=== PATIENT | male | born 1975 | race Caucasian/White ===

== ENCOUNTER → 2020-03-17 | Outpatient (CLI) | payer OTHER ==
--- NOTE | 2020-03-17 09:26 | REPVR ---
PROCEDURE INFORMATION: Exam: MR Angiogram Head Without Contrast, Arteries Exam date and time: 03/17/2020 8:20 AM Age: 44 years old Clinical indication: Other: Abnormal ct-asymetry of lt cavernous sinus TECHNIQUE: Imaging protocol: MR angiogram head without contrast. Exam focused on the arteries. 3D rendering (Not supervised by radiologist): MIP and/or 3D reconstructed images were created by the technologist. COMPARISON: CT HEAD OUTSIDE PRIOR 02/29/2020 6:54 AM FINDINGS: ANTERIOR CIRCULATION: Right internal carotid artery: Intracranial segment is patent with no significant stenosis. No aneurysm. Right middle cerebral artery: No occlusion or significant stenosis. No aneurysm. Right anterior cerebral artery: No occlusion or significant stenosis. No aneurysm. Left internal carotid artery: Intracranial segment is patent with no significant stenosis. No aneurysm. Left middle cerebral artery: No occlusion or significant stenosis. No aneurysm. Left anterior cerebral artery: No occlusion or significant stenosis. No aneurysm. POSTERIOR CIRCULATION: Right vertebral artery: No occlusion or significant stenosis. No aneurysm. Hypoplastic Left vertebral artery: No occlusion or significant stenosis. No aneurysm. Dominant Basilar artery: No occlusion or significant stenosis. No aneurysm. Right posterior cerebral artery: No occlusion or significant stenosis. No aneurysm. origin Left posterior cerebral artery: No occlusion or significant stenosis. No aneurysm. IMPRESSION: No stenosis.No occlusion. No aneurysm. No abnormality is seen in the region of the left cavernous sinus. The asymmetry on the prior CT scan is felt to be artifactual. Electronically signed by: Ethan Barnett On 03/17/2020 09:26:38 AM
--- NOTE | 2020-03-17 09:33 | REPVR ---
PROCEDURE INFORMATION: Exam: MR Head Without Contrast Exam date and time: 03/17/2020 8:19 AM Age: 44 years old Clinical indication: Other: Abnormal ct-asymetry of lt cavernous sinus TECHNIQUE: Imaging protocol: MR of the head without contrast. COMPARISON: CT HEAD OUTSIDE PRIOR 02/29/2020 6:54 AM FINDINGS: Brain: Examination reveals few small focal areas of increased T2 signal in bilateral frontal white matter. These are nonspecific and could be secondary to chronic migraine headache, vasculitis, Lyme disease, demyelination and focal areas of chronic ischemia. No acute infarction, masses, midline shift or acute hemorrhage is seen. No acute intracranial abnormality is identified.There is no abnormal diffusion weighted signal intensity to suggest an acute ischemic event.The cortical freeman / white matter interfaces are preserved throughout the brain.Intracranial flow voids are well maintained.Examination of the posterior fossa demonstrates no significant abnormality.On gradient echo imaging, no susceptibility changes are seen to represent parenchymal calcification or degraded blood products. Cerebral ventricles: The ventricular system is not dilated and is appropriate for the patient's age. Bones/joints: Unremarkable. Paranasal sinuses: Normal as visualized. No acute sinusitis. Mastoid air cells: There are changes of right-sided mastoidectomy with chronic mastoiditis. Orbits: Unremarkable. Soft tissues: Unremarkable. IMPRESSION: 1. No acute infarction, masses or hemorrhage is seen. No acute intracranial abnormality is identified. 2. Examination reveals few small focal areas of increased T2 signal in bilateral frontal white matter. These are nonspecific and could be secondary to chronic migraine headache, vasculitis, Lyme disease, demyelination and focal areas of chronic ischemia. 3. There are changes of right-sided mastoidectomy with chronic mastoiditis. 4.No abnormality is seen in the region of the left cavernous sinus. The asymmetry on the prior CT scan is felt to be artifactual. Electronically signed by: Ethan Barnett On 03/17/2020 09:33:18 AM
== END ==
LOC: M RAD 07:31
PROVIDERS: ATTEND Nurse Practitioner Family
DX: R90.89 Other abnormal findings on diagnostic imaging of central nervous system (principal)

== ENCOUNTER → 2023-06-04 | Outpatient (REF) | payer OTHER ==
[2023-06-06 08:15] LABS: LDL DIRECT 65 mg/dL (0-99)
== END ==
LOC: M LAB REF 12:14
PROVIDERS: ATTEND Internal Medicine
DX: E78.5 Hyperlipidemia, unspecified (principal)